=== PATIENT | female | born 1945 ===

== ENCOUNTER 2022-06-20 11:36 | Day surgery (SDC) | payer MEDICARE ==
[2022-06-19 12:18] VITALS: BMI 23.3
[2022-06-20] MEDS ORDERED: EPINEPHrine 1 MG/ML AMP ONE (13:24)
[2022-06-20] MEDS ORDERED: Lidocaine 1% (PF) 30 ML VIAL ONE (13:24)
[2022-06-20 13:36] LABS: Anion Gap 13 mmol/L (10-20); BUN (Urea Nitrogen) 23 mg/dL (9.8-20.1); Calc. Creatinine Clearance 50 mL/min (70-130); Calcium 10.4 mg/dL (7.8-10.44); Carbon Dioxide 24 mmol/L (23-31); Chloride 105 mmol/L (98-107); Estimated GFR 60; Glucose 74 mg/dL (83-110); Sodium 138 mmol/L (136-145)
[2022-06-20] MEDS ORDERED: SUGAMMADEX SODIUM 200 MG/2 ML VIAL ONE (13:55)
[2022-06-20] MEDS ORDERED: fentaNYL 50 mcg/mL 1 mL Vial ONE (13:55)
[2022-06-20] MEDS ORDERED: Lidocaine 1% PF 5 ML VIAL ONE (14:21)
[2022-06-20] MEDS ORDERED: Ondansetron PF 4 MG/2 ML Vial ONE (14:21)
[2022-06-20] MEDS ORDERED: Phenylephrine 10 MG/ML VIAL ONE (14:21)
[2022-06-20] MEDS ORDERED: PROPOFOL 200 MG/20 ML VIAL ONE (14:21)
[2022-06-20] MEDS ORDERED: Dexamethasone 20 MG/5 ML VIAL ONE (14:21)
== END 2022-06-20 17:30 | disposition home or self-care (01) ==
LOC: SDC 11:36
PROVIDERS: ATTEND Specialist
PROC: 0CB4XZZ Excision of Buccal Mucosa, External Approach (ICD-10-PCS; principal; 2022-06-20)
PROC: 0CB1XZX Excision of Lower Lip, External Approach, Diagnostic (ICD-10-PCS; 2022-06-20)
DX: C06.0 Malignant neoplasm of cheek mucosa (principal); C00.1 Malignant neoplasm of external lower lip; I10 Essential (primary) hypertension; J44.9 Chronic obstructive pulmonary disease, unspecified; E03.9 Hypothyroidism, unspecified; Z87.891 Personal history of nicotine dependence; Z79.899 Other long term (current) drug therapy; Z88.1 Allergy status to other antibiotic agents; Z88.5 Allergy status to narcotic agent
CPT/HCPCS: 40510; 40816; 80048; 85014; 85018; 93005; J3010; 88305; 93010; J0171; J1100; J2001; J2370; J2405; J2704